=== PATIENT | male | born 1935 | race Caucasian/White ===

== ENCOUNTER 2019-03-30 12:27 | Emergency (ER) | payer OTHER ==
[~2019-03-30] VITALS: Ht 177.8 cm; Wt 86.2 kg
[~2019-03-30 12:27] MED LIST: ACET325 PO; ALPHA LIPOIC A200 MG PO; ASCO500 PO; ASPI81CH PO; ATOR40TA PO; BISA10S PR; CARV25 PO; CEPH500 PO; CHOL10002 PO; CHROMIUM PICOLINATE PO; CLOP75 PO; Co Q-10300 MG PO; DOCU100 PO; Daily Vitamin1 EAC8 PO; ENTRESTO 24 MG1 EACH PO; FERR325 PO; FISH1000 PO; FLONASE ALLERG9.9 ML; FLUSAL2505 INH; FLUT44OIA; FURO20 PO; Fergon240 M1; HYDMETSO BOTHEYES; HYDR1TAB94 PO; I VITE PROTECT PO; ISODIN20 PO; ISOMON20; KETO5OP BOTHEYES; LATA.005SO BOTHEYES; LECITHIN400 MG PO; LISI5 PO; METO25ER PO; METO50ER PO; MILK THISTLE PO; MOMETASONE FUROATE; MULT50L PO; Magnesium500 MG PO; Nitroglycerin0.4 MG SL; OSTERA TABLET1 EACH PO; PANT40; PANT40 PO; POTCHL20ER PO; Pantothenic Ac500 MG PO; Prinivil10 MG PO; RANI150 PO; RANO500T PO; RESVERATROL250 MG PO; Ranexa1000 MG PO; SELENIUM200 MC2 PO; Saw Palmetto450 MG PO; Super B With V1 EACH PO; TAMS.4ER PO; TERA5 PO; VITAMIN B-12 PO; VITAMIN D3 PO; ZOLP5 PO
[2019-03-30 13:16] LABS: BASOPHILS ABSOLUTE AUTO 0.02 K/mm3 (0.00-0.23); BASOPHILS PERCENT AUTO 1 % (0-2); EOSINOPHILS ABSOLUTE AUTO 0.13 K/mm3 (0.00-0.68); EOSINOPHILS PERCENT AUTO 3 % (0-6); Hematocrit 31.7 % (37.0-53.0); Hemoglobin 10.2 g/dL (13.5-17.5); IMMATURE GRAN ABSOLUTE AUTO 0.01 K/mm3 (0.00-0.10); IMMATURE GRAN PERCENT AUTO 0 % (0-1); LYMPHOCYTES ABSOLUTE AUTO 1.08 K/mm3 (0.84-5.20); LYMPHOCYTES PERCENT AUTO 28 % (21-46); MONOCYTES ABSOLUTE AUTO 0.63 K/mm3 (0.16-1.47); MONOCYTES PERCENT AUTO 16 % (4-13); Mean Corpuscular HGB Conc 32.2 g/dL (31.5-36.5); Mean Corpuscular Volume 99 fL (80-100); Mean Platelet Volume 10.7 fL (9.1-12.4); NEUTROPHILS ABSOLUTE AUTO 2.05 K/mm3 (1.96-9.15); NEUTROPHILS PERCENT AUTO 52 % (41-73); Platelet Count 151 K/mm3 (150-400); RDW Standard Deviation 57.9 fL (35.1-46.3); Red Blood Cell Count 3.19 M/mm3 (4.30-5.90); White Blood Cell Count 3.92 K/mm3 (4.00-11.30)
[2019-03-30 13:34] LABS: Alanine Aminotransfer (ALT/SGP 18 U/L (12-78); Albumin, Blood 3.1 g/dL (3.4-5.0); Albumin/Globulin Ratio 0.7 (0.8-1.8); Alk Phos 140 U/L (50-136); Anion Gap 6 mmol/L (6-16); Aspartate Aminotrans (AST/SGOT 20 U/L (12-37); Bilirubin, Total 0.7 mg/dL (0.1-1.0); Blood Urea Nitrogen 66 mg/dL (8-24); Bun/Creatinine Ratio 28.3 (12.0-20.0); CO2, Blood 24 mmol/L (21-32); Calcium, Blood 9.2 mg/dL (8.5-10.1); Chloride, Blood 108 mmol/L (98-108); Creatinine, Blood 2.33 mg/dL (0.60-1.20); Globulin, Blood 4.3 g/dL (2.2-4.0); Glomerular Filtration Rate 29 (60-); Glucose, Blood 92 mg/dL (70-99); Potassium, Blood 4.9 mmol/L (3.5-5.5); Sodium, Blood 138 mmol/L (136-145); Total Protein, Blood 7.4 g/dL (6.4-8.2); Troponin I <0.015 ng/mL (0.000-0.040)
[2019-03-30 15:02] LABS: International Normalized Ratio 1.3; Prothrombin Time Results 13.5 Sec (9.7-11.5)
== END 2019-03-30 16:30 | disposition home or self-care (01) ==
LOC: ER 12:27
PROVIDERS: Emergency Medicine
DX: R18.8 Other ascites (principal); I11.0 Hypertensive heart disease with heart failure; I50.9 Heart failure, unspecified; Z87.891 Personal history of nicotine dependence; Z95.1 Presence of aortocoronary bypass graft; Z79.82 Long term (current) use of aspirin; Z79.899 Other long term (current) drug therapy
CPT/HCPCS: 36415; 49083; 71046; 80053; 83880; 84484; 85025; 85610; 85730; 93005; 93010; 99284-25; P9046